=== PATIENT | female | born 1955 | race Caucasian/White ===

== ENCOUNTER 2016-07-09 07:05 | Outpatient (CLI) | payer OTHER, BC ==
[2016-07-09 08:18] LABS: eGFR (African) > 60; eGFR (Non-African) > 60
== END 2016-07-09 07:06 ==
LOC: LAB 07:05
PROVIDERS: ATTEND Family Medicine
DX: Z13.220 Encounter for screening for lipoid disorders (principal)
CPT/HCPCS: 36415; 80053; 80061

== ENCOUNTER 2018-06-19 09:04 | Outpatient (CLI) | payer OTHER, BC ==
[2018-06-19 09:42] LABS: BASOPHILS % 0.6 % (0.0-1.5); EOSINOPHILS % 2.1 % (0.0-6.8); MONOCYTES % 4.9 % (0.0-11.0); NEUTROPHILS # 4.1 # k/uL (1.4-7.7)
[2018-06-19 10:24] LABS: eGFR (Non-African) > 60
== END 2018-06-19 10:00 ==
LOC: LAB 09:04
PROVIDERS: ATTEND Family Medicine
DX: Z00.00 Encounter for general adult medical examination without abnormal findings (principal); Z13.0 Encounter for screening for diseases of the blood and blood-forming organs and certain disorders involving the immune mechanism; Z13.220 Encounter for screening for lipoid disorders; Z13.29 Encounter for screening for other suspected endocrine disorder; Z79.899 Other long term (current) drug therapy
CPT/HCPCS: 36415; 80053; 80061; 84443; 85025